=== PATIENT | male | born 1985 | race Caucasian/White ===

== ENCOUNTER 2020-08-31 07:41 | Day surgery (SDC) | payer BC ==
[~2020-08-31 07:41] MED LIST: Lactated Ringers 1,000 ML IV SCH; Midazolam 1 MG/ML 2 ML SDV ONE; Propofol 200 MG/20 ML SDV ONE
--- NOTE | 2020-08-31 08:06 | PCM.PREANE ---
Preanesthetic Assessment - Anesthesia/Transfusion/Family Hx Anesthesia History: Prior Anesthesia Without Reaction (dental extractions, no hx of GA) Family History of Anesthesia Reaction: No Transfusion History: No Prior Transfusion(s) - Review of Systems General: No Symptoms Pulmonary: No Symptoms Cardiovascular: No Symptoms Gastrointestinal: No Symptoms Neurological: No Symptoms Other: Reports: None - Physical Assessment NPO Status Date: 08/30/20 Vital Signs: Last Vital Signs Temp 96.6 F L 08/31/20 07:50 Pulse 105 H 08/31/20 07:50 Resp 16 08/31/20 07:50 BP 139/92 H 08/31/20 07:50 Pulse Ox 96 08/31/20 07:50 Height: 6 ft Weight: 138.346 kg ASA Class: 2 Mental Status: Alert & Oriented x3 Airway Class: Mallampati = 2 Dentition: Reports: Normal Dentition ROM/Head Extension: Full Lungs: Clear to Auscultation, Normal Respiratory Effort Cardiovascular: Regular Rate, Regular Rhythm - Allergies Allergies/Adverse Reactions: Allergies Allergy/AdvReac Type Severity Reaction Status Date / Time grain dust Allergy Sneezing Uncoded 08/27/20 11:54 pollen Allergy Sneezing Uncoded 08/27/20 11:53 - Blood Blood Available: No - Anesthesia Plan Pre-Op Medication Ordered: None - Acknowledgements Anesthesia Type Planned: General Anesthesia (tiva) Pt an Appropriate Candidate for the Planned Anesthesia: Yes Alternatives and Risks of Anesthesia Discussed w Pt/Guardian: Yes Pt/Guardian Understands and Agrees with Anesthesia Plan: Yes Additional Comments: full gaitan, snores at night but never assessed for MIRNA PLAN: tiva PreAnesthesia Questionnaire HEENT History: Reports: Impaired Vision Other HEENT History: wears contact lens and glasses when not wearing contacts Cardiovascular History: Reports: Hypertension Respiratory History: Reports: None Gastrointestinal History: Reports: None Genitourinary History: Reports: None Musculoskeletal History: Reports: Fracture Other Musculoskeletal History: left arm Neurological History: Reports: None Psychiatric History: Reports: None Endocrine/Metabolic History: Reports: Obesity/BMI 30+ Hematologic History: Reports: None Oncologic (Cancer) History: Reports: None Dermatologic History: Reports: None - Infectious Disease History Infectious Disease History: Reports: None - Past Surgical History Head Surgeries/Procedures: Reports: None HEENT Surgical History: Reports: Oral Surgery Other HEENT Surgeries/Procedures: states had wisdom teeth extracted Cardiovascular Surgical History: Reports: None GI Surgical History: Reports: None Female Surgical History: Reports: None Endocrine Surgical History: Reports: None Neurological Surgical History: Reports: None Musculoskeletal Surgical History: Reports: None Oncologic Surgical History: Reports: None - SUBSTANCE USE Tobacco Use Status *Q: Current Every Day Tobacco User Tobacco Use Within Last Twelve Months: Cigarettes - HOME MEDS Home Medications: Home Meds Fexofenadine/Pseudoephedrine [Kaitlynn-D 12 Hour Tablet] 1 tab PO DAILY 08/27/20 [History] Losartan [Cozaar] 1 tab PO DAILY 08/27/20 [History] hydroCHLOROthiazide [Hydrochlorothiazide] 1 tab PO DAILY 08/27/20 [History] - CURRENT (IN HOUSE) MEDS Current Meds: Current Medications Lactated Ringer's (Ringers, Lactated) 1,000 mls @ 125 mls/hr IV ASDIRECTED PRERNA Discontinued Medications Midazolam HCl (Versed 1 Mg/Ml) Confirm Administered Dose 2 mg .ROUTE .STK-MED ONE Stop: 08/31/20 07:00 Propofol (Diprivan 20 Ml) Confirm Administered Dose 600 mg .ROUTE .STK-MED ONE Stop: 08/31/20 07:00
--- NOTE | 2020-08-31 10:11 | PCM.OPNOTE ---
- General Post-Op/Procedure Note Date of Surgery/Procedure: 08/31/20 Operative Procedure(s): Colonoscopy with snare rectal polypectomy Pre Op Diagnosis: Rectal bleeding. Family history of colon cancer. Post-Op Diagnosis: Rectal polyp. Mild descending colon and sigmoid di verticulosis. External hemorrhoids. Anesthesia Technique: MAC (ASA II) Primary Surgeon: Ho Chavez Transcriber: Lucretia Salas Condition: Good Free Text/Narrative:: DICTATION [id number] CPT CODE 17987
[2020-08-31] MEDS ORDERED: Lactated Ringers 1,000 ML IV SCH (10:15)
--- NOTE | 2020-08-31 11:25 | PCM48HPAN ---
Post Anesthesia Note - EVALUATION WITHIN 48HRS OF ANESTHETIC Vital Signs in Normal Range: Yes Patient Participated in Evaluation: Yes Respiratory Function Stable: Yes Airway Patent: Yes Cardiovascular Function Stable: Yes Hydration Status Stable: Yes Pain Control Satisfactory: Yes Nausea and Vomiting Control Satisfactory: Yes Mental Status Recovered: Yes Vital Signs: Last Vital Signs Temp 96.8 F L 08/31/20 10:30 Pulse 90 08/31/20 10:30 Resp 15 08/31/20 10:30 BP 121/68 08/31/20 10:30 Pulse Ox 95 08/31/20 10:30
--- NOTE | 2020-08-31 11:25 | PCM.POSTAN ---
POST ANESTHESIA ASSESSMENT - MENTAL STATUS Mental Status: Alert, Oriented - VITAL SIGNS Vital Signs: Last Vital Signs Temp 96.8 F L 08/31/20 10:30 Pulse 90 08/31/20 10:30 Resp 15 08/31/20 10:30 BP 121/68 08/31/20 10:30 Pulse Ox 95 08/31/20 10:30 - RESPIRATORY Respiratory Status: Respiratory Rate WNL, Airway Patent, O2 Saturation Stable - CARDIOVASCULAR CV Status: Pulse Rate WNL, Blood Pressure Stable - GASTROINTESTINAL GI Status: No Symptoms - POST OP HYDRATION Hydration Status: Adequate & Stable
--- NOTE | 2020-08-31 12:01 | OR ---
SURGEON: Ho Chavez M.D. DATE OF PROCEDURE: 08/31/2020 OPERATION PERFORMED: Colonoscopy with snare rectal polypectomy. PRIMARY SURGEON: Ho Chavez MD TURNING LATHE TENDER: technical staff assistant: BOBBY Saini student. ANESTHESIA: MAC. ASA CLASSIFICATION: II. PREOPERATIVE DIAGNOSES: 1. Rectal bleeding. 2. Family history of colon cancer. POSTOPERATIVE DIAGNOSES: 1. Rectal polyp. 2. Mild descending colon and sigmoid diverticulosis. 3. Hemorrhoids. DESCRIPTION OF PROCEDURE: The patient was taken to the endoscopy room and positioned on the endoscopy table in the left lateral decubitus position. Time-out was called for appropriate identification of the patient and procedure. Monitored anesthesia care was provided. The colonoscope was inserted into the rectum and advanced with minimal difficulty to the cecum. The cecum was identified by internal landmarks and external pressure. The colonoscope was retroflexed to visualize the ascending colon from below, then straightened and slowly withdrawn. The cecum, ascending colon, hepatic flexure, transverse colon, splenic flexure showed no tumors, polyps, diverticula, or angiodysplastic changes. A few small scattered diverticula were noted in the descending colon and sigmoid colon. No stricture, spasm, or bleeding was noted and no polyps were encountered at those levels. The colonoscope was then withdrawn to the rectum where approximately 5 to 6 mm polyp on a stalk was identified. This was removed with the snare electrocautery and recovered. The colonoscope was then retroflexed to visualize the anal orifice from above. No tumors or polyps were seen, although the patient did have significant hemorrhoids. No acute bleeding was noted today. The colonoscope was then straightened, the rectum aspirated, and the colonoscope removed. The patient tolerated the procedure well and was taken to recovery room in stable condition. YVONNE / SALVATORE /[id number]
== END 2020-08-31 10:51 | disposition home or self-care (01) ==
LOC: MW.SDS 07:41
PROVIDERS: ATTEND Surgery
DX: D12.8 Benign neoplasm of rectum (principal); K57.31 Diverticulosis of large intestine without perforation or abscess with bleeding; K64.9 Unspecified hemorrhoids; I10 Essential (primary) hypertension; E66.01 Morbid (severe) obesity due to excess calories; F17.200 Nicotine dependence, unspecified, uncomplicated; Z68.41 Body mass index [BMI] 40.0-44.9, adult; Z79.899 Other long term (current) drug therapy; Z80.0 Family history of malignant neoplasm of digestive organs; Z91.048 Other nonmedicinal substance allergy status
CPT/HCPCS: 45385; J2250; J2704; J7120